=== PATIENT | female | born 1975 | race Caucasian/White ===

== ENCOUNTER 2020-02-01 16:16 | Inpatient (IN) ==
[2020-02-01] MEDS ORDERED: DOCUSATE SODIUM 100 MG CAPSULE PO PRN (16:26)
[2020-02-01] MEDS ORDERED: ACETAMINOPHEN 325 MG TABLET PO PRN (16:26)
[2020-02-01] MEDS ORDERED: ONDANSETRON 4 MG/2 ML VIAL IV PRN (16:26)
[2020-02-01] MEDS ORDERED: LORATADINE 10 MG TABLET PO PRN (16:33)
[2020-02-01] MEDS ORDERED: TEMAZEPAM 7.5 MG CAPSULE PO PRN (16:37)
[2020-02-01 19:08] LABS: Basophils # 0.1 10*3/uL (0.0-0.2); Eosinophils # 0.3 10*3/uL (0.0-0.87); Eosinophils % 5.5 % (0.00-10.9); Hematocrit 38.4 VOL% (35.7-47.0); Hemoglobin 13.6 GM/DL (12.0-16.0); Immature Granulocytes % 0.2 %; Immature Granulocytes Absolute 0.01 #; Lymphocytes # 0.8 10*3/uL (1.4-4.0); Lymphocytes % 12.9 % (21.3-54.2); Mean Corpuscular HGB Conc 35.4 GM/DL (32-36); Mean Corpuscular Volume 93.7 FL (87-102); Mean Platelet Volume 10.7 FL (9.6-12.0); Monocytes % 9.9 % (1.7-12.7); Neutrophils % 70.5 % (38.7-73.9); Platelet Count 102 T/CUMM (130-400); Red Cell Distribution Width 14.1 % (9.3-17.3); White Blood Count 5.8 T/CUMM (4-12)
[2020-02-01 19:27] LABS: Albumin 3.7 G/DL (3.4-5.0); Bilirubin,Total 1.3 MG/DL (0.2-1.0); Calcium 9.3 MG/DL (8.5-10.1); Osmolality,Calculated 276.5 MOS/KG (273-304); Total Protein 7.5 G/DL (6.4-8.3)
[2020-02-01] MEDS: VANCOMYCIN INJ 1,750 MG in SODIUM CHLORIDE 0.9% 500 ML IV SCH (22:13)
[2020-02-01] MEDS: SODIUM CHLORIDE 0.9% 1,000 ML IV SCH (22:13)
[2020-02-02 01:08] LABS: Apearance,Urine CLEAR (Clear); Bilirubin,Urine Negative (Negative); Blood, Urine Negative (Negative); Glucose,Urine (UA) Negative (Negative); Ketones,Urine Negative (Negative); Mucus,Urine Occasional /LPF (Occasional); Nitrite,Urine Negative (Negative); Protein,Urine Negative; RBC,Urine 2 /HPF (0-4); Squamous Epithelial Cell,Urine Occasional /HPF (0-10); Urine Color Yellow (Yellow); Urine Specific Gravity 1.012 (1.001-1.035); WBC,Urine 1 /HPF (0-6)
[2020-02-02] MEDS: LEVOTHYROXINE 50 MCG TABLET PO SCH (05:45)
[2020-02-02] MEDS: PANTOPRAZOLE 40 MG TABLET PO SCH (09:42)
[2020-02-02] MEDS: DEXTROAMPHETAMINE AMPHETAMINE 10 MG PO SCH (09:42)
[2020-02-02] MEDS: azaTHIOprine 50 MG TABLET PO SCH (09:42)
[2020-02-02] MEDS: METOCLOPRAMIDE 5 MG TABLET PO SCH ×4 (09:42→21:11)
[2020-02-02] MEDS: TACROLIMUS 4 MG PO SCH (09:43)
[2020-02-02] MEDS: VANCOMYCIN INJ 1,750 MG in SODIUM CHLORIDE 0.9% 500 ML IV SCH ×2 (09:44→21:10)
[2020-02-02] MEDS ORDERED: LIDOCAINE 1%/EPI INJ 20 ML VIAL ONE (11:04)
[2020-02-02] MEDS ORDERED: BUPIVACAINE MPF 0.25% 30 ML VIAL ONE (11:04)
[2020-02-02] MEDS ORDERED: propofoL 200 MG/20 ML VIAL IV ONE (12:01)
[2020-02-02] MEDS ORDERED: ONDANSETRON 4 MG/2 ML VIAL ONE (12:02)
[2020-02-02] MEDS ORDERED: DEXMEDETOMIDINE 200 MCG/2 ML VIAL ONE (12:02)
[2020-02-02] MEDS ORDERED: MIDAZOLAM 2 MG/2 ML VIAL ONE (12:02)
[2020-02-02] MEDS ORDERED: fentaNYL 100 MCG/2 ML VIAL ONE (12:02)
[2020-02-02] MEDS ORDERED: LIDOCAINE 2% 5 ML VIAL ONE (12:02)
[2020-02-02] MEDS ORDERED: DEXAMETHASONE 4 MG/1 ML VIAL ONE (12:02)
[2020-02-02] MEDS: SODIUM CHLORIDE 0.9% 1,000 ML IV SCH (14:48)
[2020-02-03] MEDS: LEVOTHYROXINE 50 MCG TABLET PO SCH (06:21)
[2020-02-03] MEDS: METOCLOPRAMIDE 5 MG TABLET PO SCH ×2 (07:52→12:07)
[2020-02-03] MEDS: DEXTROAMPHETAMINE AMPHETAMINE 10 MG PO SCH (08:15)
[2020-02-03] MEDS: azaTHIOprine 50 MG TABLET PO SCH (08:15)
[2020-02-03] MEDS: TACROLIMUS 4 MG PO SCH (08:16)
[2020-02-03] MEDS: PANTOPRAZOLE 40 MG TABLET PO SCH (08:16)
[2020-02-03] MEDS: VANCOMYCIN INJ 1,750 MG in SODIUM CHLORIDE 0.9% 500 ML IV SCH (08:17)
[2020-02-03] MEDS ORDERED: HYDROmorphone 2 MG/1 ML VIAL IV ONE (11:25)
[2020-02-03] MEDS ORDERED: cefTRIAXone 1,000 MG VIAL IM ONE (13:54)
[2020-02-03 15:45] VITALS: BP 131/64
== END 2020-02-03 16:01 | disposition home or self-care (01) | DRG 580 ==
LOC: N.3E → OBSVTOIN 17:50
PROVIDERS: ADMIT Family Medicine; ATTEND Family Medicine